=== PATIENT | female | born 1945 | race Caucasian/White ===

== ENCOUNTER 2020-02-22 09:24 | Inpatient (IN) ==
[2020-02-22] MEDS ORDERED: Ropivacaine/PF 0.5% 30 ML VIAL ONE (09:33)
[2020-02-22] MEDS ORDERED: ROPIVACAINE/PF/NS 0.25% 1 EACH SYRINGE INTRAART ONE (09:33)
[2020-02-22] MEDS ORDERED: *HR* FentaNYL (PF) 100 MCG/2 ML VIAL ONE (09:44)
[2020-02-22] MEDS ORDERED: *HR* Midazolam HCl 2 MG/2 ML VIAL ONE (09:44)
[2020-02-22] MEDS ORDERED: Lidocaine -MPF 2% 2 ML VIAL ONE (09:45)
[2020-02-22] MEDS ORDERED: Lidocaine -MPF 4% 5 ML AMPUL ONE (09:45)
[2020-02-22] MEDS ORDERED: Ondansetron 4 MG/2 ML VIAL ONE (09:45)
[2020-02-22] MEDS ORDERED: *HR* Rocuronium Bromide 50 MG/5 ML VIAL ONE (09:45)
[2020-02-22] MEDS ORDERED: Dexamethasone 4 MG/ML VIAL ONE (09:45)
[2020-02-22] MEDS ORDERED: *HR* Succinylcholine 200 MG/10 ML VIAL IVP ONE (09:45)
[2020-02-22] MEDS ORDERED: Ethanol\\Acetic Acid\\Na Ace\\Ben 1,000 ML IRRIG.SOLN IR ONE (09:52)
[2020-02-22] MEDS ORDERED: CeFAZolin Syr 2,000MG/20 ML 2,000 MG/20 ML SYRINGE IVPB ONE (09:57)
[2020-02-22] MEDS ORDERED: Ringers Solution, Lactated 1,000 ML IVC SCH ×2 (10:00→12:57)
[2020-02-22] MEDS ORDERED: *HR* OxyCODONE Immed Rel 5 MG TABLET PO PRN ×2 (10:19→12:57)
[2020-02-22] MEDS ORDERED: *HR* HYDROmorphone PF 0.5 MG/0.5 ML SYRINGE IVP PRN (10:19)
[2020-02-22] MEDS ORDERED: Ondansetron 4 MG/2 ML VIAL IVP ONE (10:19)
[2020-02-22] MEDS ORDERED: Vancomycin 1,000 MG VIAL ONE (11:00)
[2020-02-22 12:18] LABS: Hematocrit 36.8 % (35.3-44.9); Hemoglobin 11.5 g/dL (11.5-15.4)
[2020-02-22] MEDS ORDERED: Ondansetron 4 MG/2 ML VIAL IVP PRN (12:57)
[2020-02-22] MEDS ORDERED: Insulin LISPRO 300 UNITS/3 ML VIAL SQ SCH ×2 (12:57→21:00)
[2020-02-22] MEDS ORDERED: Naloxone 0.4 MG/ML INJ IVP PRN (12:57)
[2020-02-22] MEDS ORDERED: MOM Conc 10 ML UD.LIQ PO PRN (12:57)
[2020-02-22] MEDS ORDERED: Sennosides 8.6 MG TABLET PO PRN (12:57)
[2020-02-22] MEDS ORDERED: Dextrose Gel 15 GM/37.5 ML TUBE PO PRN ×2 (12:57)
[2020-02-22] MEDS ORDERED: D5% in Water 1,000 ML IVC PRN (12:57)
[2020-02-22] MEDS ORDERED: *HR* OxyCODONE/APAP 5/325 TABLET PO PRN (12:57)
[2020-02-22] MEDS ORDERED: *HR* Dextrose 50 % in Water (Syg) 50 ML SYRINGE IVP PRN (12:57)
[2020-02-22] MEDS ORDERED: *HR* Enoxaparin 30 MG/0.3 ML SYRINGE SQ SCH ×3 (14:57→18:00)
[2020-02-22] MEDS ORDERED: CeFAZolin 2 GM/120 ML BAG IVPB SCH (16:00)
[2020-02-22 17:33] VITALS: BP 165/74
[2020-02-22] MEDS ORDERED: DICLOFENAC SODIUM PO SCH (21:00)
[2020-02-22] MEDS ORDERED: Gabapentin 300 MG CAPSULE PO SCH (21:00)
[2020-02-23] MEDS ORDERED: *HR* Metformin 500 MG TABLET PO SCH (09:00)
[2020-02-23] MEDS ORDERED: Furosemide 40 MG TABLET PO SCH (09:00)
[2020-02-23] MEDS ORDERED: Ascorbic Acid 500 MG TABLET PO SCH (09:00)
[2020-02-23] MEDS ORDERED: allopurinoL 100 MG TABLET PO SCH (09:00)
[2020-02-23] MEDS ORDERED: Cholecalciferol (D-3) 1,000 UNIT (25MCG) TABLET PO SCH (09:00)
== END 2020-02-22 18:30 | disposition home or self-care (01) | DRG 483 ==
LOC: SAMDAY 09:24 → 3NENU 09:43
PROVIDERS: ADMIT Orthopaedic Surgery; ATTEND Orthopaedic Surgery